=== PATIENT | female | born 1950 | race Hispanic/Latino ===

== ENCOUNTER 2017-04-24 13:15 | Emergency (ER) | payer MEDICARE | END 2017-04-24 14:41 | disposition home or self-care (01) | LOC: EDH 13:15 | DX: S40.021A Contusion of right upper arm, initial encounter (principal); K21.9 Gastro-esophageal reflux disease without esophagitis; E78.5 Hyperlipidemia, unspecified; Z88.8 Allergy status to other drugs, medicaments and biological substances; W01.0XXA Fall on same level from slipping, tripping and stumbling without subsequent striking against object, initial encounter; Y93.89 Activity, other specified; Y92.098 Other place in other non-institutional residence as the place of occurrence of the external cause; Y99.8 Other external cause status | CPT/HCPCS: 73060 ==

== ENCOUNTER → 2017-07-02 | Outpatient (CLI) | payer MEDICARE | END | disposition home or self-care (01) | LOC: OIH 13:32 | PROVIDERS: ATTEND Internal Medicine | DX: S42.91XA Fracture of right shoulder girdle, part unspecified, initial encounter for closed fracture (principal); R29.898 Other symptoms and signs involving the musculoskeletal system; X58.XXXA Exposure to other specified factors, initial encounter; Y93.89 Activity, other specified; Y92.89 Other specified places as the place of occurrence of the external cause; Y99.8 Other external cause status | CPT/HCPCS: 73200 ==

== ENCOUNTER 2018-05-16 18:24 | Emergency (ER) | payer MEDICARE ==
[2018-05-16 19:14] LABS: APPEARANCE,URINE Clear (CLEAR); BILIRUBIN,URINE Negative (NEGATIVE); COLOR,URINE Yellow (YELLOW); GLUCOSE, URINE (UA) Negative (NEGATIVE); KETONES,URINE Negative (NEGATIVE); LEUKOCYTE ESTERASE ,URINE Moderate (NEGATIVE); NITRATE,URINE Negative (NEGATIVE); OCCULT BLOOD,URINE Negative (NEGATIVE); PROTEIN,URINE Negative (NEGATIVE); UROBILINOGEN,URINE 0.2 mg/dL (0.2-1.0)
[2018-05-16 19:49] LABS: BACTERIA,URINE Rare /HPF (None Seen); RBC,URINE 0-1 /HPF (0-1)
[2018-05-16 19:51] LABS: SQUAMOUS EPITHELIAL CELL,UR Rare /HPF (0-2)
[2018-05-16] MEDS ORDERED: DiphenhydrAMINE HCL 50 MG/ML VIAL ONE (19:57)
[2018-05-16] MEDS ORDERED: SODIUM CHLORIDE 0.9% 1000ML 1,000 ML IV ONE (19:57)
[2018-05-16] MEDS ORDERED: KETOROLAC TROMETHAMINE 30MG/ML ONE (19:58)
[2018-05-16] MEDS ORDERED: PROCHLORPERAZINE EDISYLATE 10 MG/2 ML VIAL ONE (19:58)
[2018-05-16 20:08] LABS: BASOPHILS % (AUTO) 0.4 % (0.0-5.0); LYMPHOCYTES % (AUTO) 32.9 % (21.0-51.0); MEAN CORPUSCULAR HEMOGLOBIN 30.6 pg (27.0-33.0); MEAN CORPUSCULAR HGB CONC 33.7 g/dL (32.0-36.0); MEAN CORPUSCULAR VOLUME 90.9 fL (79-99); MONOCYTES % (AUTO) 9.4 % (3.0-13.0); NEUTROPHILS % (AUTO) 55.3 % (40.0-77.0); PLATELET COUNT (AUTO) 373 K/uL (130-400); RED BLOOD CELL COUNT(AUTO) 3.52 MIL/uL (4.00-5.50); RED CELL DISTRIBUTION WIDTH 13.4 % (11.0-15.5); WHITE BLOOD COUNT (AUTO) 6.4 K/uL (4.8-10.8)
[2018-05-16 20:20] LABS: CREATININE 0.5 mg/dL (0.5-1.5); POTASSIUM 3.6 mmol/L (3.5-5.1)
[2018-05-16 20:21] LABS: INR 0.9 (0.85-1.15); PARTIAL THROMBOPLASTIN TIME 26.7 SEC (26.3-35.5); PROTHROMBIN TIME 9.5 SEC (9.6-11.6)
[2018-05-16 20:25] LABS: ALBUMIN 3.8 g/dL (3.5-5.0); BILIRUBIN,TOTAL 0.2 mg/dL (0.2-1.0); TOTAL PROTEIN, SERUM 7.8 g/dL (6.0-8.3)
[2018-05-16] MEDS ORDERED: LORAZEPAM 1 MG TABLET ONE (20:50)
== END 2018-05-16 21:01 | disposition home or self-care (01) ==
LOC: EDH 18:24
DX: H81.10 Benign paroxysmal vertigo, unspecified ear (principal); E86.9 Volume depletion, unspecified; R51 Headache; M62.838 Other muscle spasm
CPT/HCPCS: 36415; 80053; 81001; 84484; 85025; 85610; 85730; 96361; 96374; 96375; 99283; J0780; J1200; J1885; J7030

== ENCOUNTER → 2018-12-01 | Outpatient (CLI) | payer OTHER | END | disposition home or self-care (01) | LOC: RAH 10:32 | PROVIDERS: ATTEND Internal Medicine | DX: Z13.6 Encounter for screening for cardiovascular disorders (principal) | CPT/HCPCS: 75571 ==

== ENCOUNTER 2019-11-22 05:53 | Day surgery (SDC) | payer OTHER ==
[2019-11-17 13:26] LABS: BASOPHILS % (AUTO) 0.4 % (0.0-5.0); EOSINOPHILS % (AUTO) 2.6 % (0.0-8.0); HEMATOCRIT 31.3 % (36-48); LYMPHOCYTES % (AUTO) 40.6 % (21.0-51.0); MEAN CORPUSCULAR HEMOGLOBIN 30.3 pg (27.0-33.0); MEAN CORPUSCULAR HGB CONC 32.9 g/dL (32.0-36.0); MEAN CORPUSCULAR VOLUME 92.1 fL (79-99); MONOCYTES % (AUTO) 7.7 % (3.0-13.0); NEUTROPHILS % (AUTO) 48.5 % (40.0-77.0); PLATELET COUNT (AUTO) 256 K/uL (130-400); RED CELL DISTRIBUTION WIDTH 13.9 % (11.0-15.5); WHITE BLOOD COUNT (AUTO) 4.7 K/uL (4.8-10.8)
[2019-11-17 13:32] LABS: CREATININE 0.6 mg/dL (0.5-1.5); POTASSIUM 3.7 mmol/L (3.5-5.1)
--- NOTE | 2019-11-21 11:30 | NUR ---
Spoke to Alexa from Doctor Saavedra office advised her hemoglobin level was 10.3, per nurse she would advise doctor Saavedra and call us back if any orders.
[2019-11-22] VITALS (17 sets, daily range): BP systolic 83–142; BP diastolic 43–91
[~2019-11-22] VITALS: Ht 162.6 cm; Wt 86.5 kg
[~2019-11-22 05:53] MED LIST: AMOX500C2 PO; CODEINE PO; DICL50TA9 PO; FENO54TA6 PO; GABA-529 PO; LOSA25TA41 PO; PYRI100T10 PO; SERT100T PO; TYLENOL PO; iron PO; magnesium PO; tumeric PO; vitamin d PO
[2019-11-22] MEDS ORDERED: NEOMY SULF/BACITRAC ZN/POLY OINT 30GM TUBE TP ONE (06:47)
[2019-11-22] MEDS ORDERED: EPINEPHRINE 1 MG/ML AMPULE ONE (06:48)
[2019-11-22] MEDS ORDERED: LIDOCAINE HCL 1% MDV 50ML VIAL ONE (06:48)
[2019-11-22] MEDS ORDERED: LACTATED RINGERS 1000ML 1,000 ML IV ONE (06:50)
[2019-11-22] MEDS ORDERED: SUCCINYLCHOLINE CHLORIDE 20 MG/ML 10 ML VIAL ONE ×2 (07:17→08:21)
[2019-11-22] MEDS ORDERED: LIDOCAINE PF 2% 5ML ABBOJECT ONE (07:18)
[2019-11-22] MEDS ORDERED: MIDAZOLAM HCL 1 MG/ML 2ML VIAL ONE (07:18)
[2019-11-22] MEDS ORDERED: GLYCOPYRROLATE 1 MG/5 ML SYRINGE ONE (07:18)
[2019-11-22] MEDS ORDERED: DEXAMETHASONE SOD PHOSPHATE 10MG/ML 1ML VIAL ONE (07:18)
[2019-11-22] MEDS ORDERED: ONDANSETRON HCL 4 MG/2 ML VIAL ONE (07:19)
[2019-11-22] MEDS ORDERED: PROPOFOL 10 MG/ML 20ML VIAL IV ONE (07:19)
[2019-11-22] MEDS ORDERED: NEOSTIGMINE 5MG/5ML SYR IV ONE (07:19)
[2019-11-22] MEDS ORDERED: FENTANYL CITRATE PF 50 MCG/1 ML 2ML VIAL ONE (07:19)
[2019-11-22] MEDS ORDERED: ROCURONIUM 10MG/1ML SYR 10 MG/ML ML ONE (07:19)
[2019-11-22] MEDS ORDERED: CEFAZOLIN SODIUM 1 GM VIAL ONE (07:53)
[2019-11-22] MEDS ORDERED: MEPERIDINE-PF 25 MG/ML SYG ONE (09:21)
[2019-11-22] MEDS ORDERED: KETOROLAC TROMETHAMINE 30MG/ML ONE (09:37)
== END 2019-11-22 10:35 | disposition home or self-care (01) ==
LOC: DAH 05:53
PROVIDERS: ATTEND Otolaryngology Plastic Surgery within the Head & Neck
DX: H70.11 Chronic mastoiditis, right ear (principal); H66.3X1 Other chronic suppurative otitis media, right ear; H72.91 Unspecified perforation of tympanic membrane, right ear; H70.891 Other mastoiditis and related conditions, right ear; H74.01 Tympanosclerosis, right ear; J45.909 Unspecified asthma, uncomplicated; Z11.59 Encounter for screening for other viral diseases; Z88.8 Allergy status to other drugs, medicaments and biological substances; Z98.890 Other specified postprocedural states
CPT/HCPCS: 36415; 69645; 80048; 85025; 88305; 88311; 88312; A4215; A4221; A4222; A4223; A4452; A4649; A6260; A6446; C9803; J0171; J0330 ×2; J0690; J1100; J1885; J2001; J2175; J2250; J2405; J2704; J2710; J3010; J3490 ×2; J7030; J7040; J7120; U0003

== ENCOUNTER 2023-09-25 18:31 | Emergency (ER) | payer OTHER ==
[~2023-09-25] VITALS: Ht 162.6 cm; Wt 73.9 kg
[2023-09-25 19:39] LABS: BASOPHILS # (AUTO) 0.03 K/uL (0.00-0.20); BASOPHILS % (AUTO) 0.5 % (0.0-5.0); EOSINOPHILS # (AUTO) 0.12 K/uL (0.00-0.70); EOSINOPHILS % (AUTO) 1.9 % (0.0-8.0); HEMATOCRIT 30.2 % (36-48); IMMATURE GRANULOCYTE ABSOLUTE 0.01 K/uL (0-1); LYMPHOCYTES # (AUTO) 1.9 K/uL (1.0-4.8); LYMPHOCYTES % (AUTO) 28.6 % (21.0-51.0); MEAN CORPUSCULAR HEMOGLOBIN 32.4 pg (27.0-33.0); MEAN CORPUSCULAR HGB CONC 36.1 g/dL (32.0-36.0); MEAN CORPUSCULAR VOLUME 89.9 fL (79-99); MONOCYTES # (AUTO) 0.6 K/uL (0.1-1.0); MONOCYTES % (AUTO) 9.1 % (3.0-13.0); NEUTROPHILS # (AUTO) 3.9 K/uL (1.8-7.7); NEUTROPHILS % (AUTO) 59.7 % (40.0-77.0); PLATELET COUNT (AUTO) 286 K/uL (130-400); RED BLOOD CELL COUNT(AUTO) 3.36 MIL/uL (4.00-5.50); RED CELL DISTRIBUTION WIDTH 12.7 % (11.0-15.5); WHITE BLOOD COUNT (AUTO) 6.5 K/uL (4.8-10.8)
[2023-09-25 20:03] LABS: CREATININE 0.6 mg/dL (0.5-1.0); POTASSIUM 3.7 mmol/L (3.5-5.1)
[2023-09-25 20:05] LABS: ADD UA MICROSCOPIC YES; APPEARANCE,URINE CLEAR (CLEAR); BILIRUBIN,URINE NEGATIVE (NEGATIVE); COLOR,URINE COLORLESS (YELLOW); GLUCOSE, URINE (UA) NEGATIVE (NEGATIVE); KETONES,URINE NEGATIVE (NEGATIVE); LEUKOCYTE ESTERASE ,URINE NEGATIVE Leu/uL (NEGATIVE); NITRATE,URINE NEGATIVE (NEGATIVE); PH,URINE 7.5 (5.0-8.0); PROTEIN,URINE NEGATIVE (NEGATIVE); UROBILINOGEN,URINE 0.2 mg/dL (0.2-1.0)
[2023-09-25 20:09] LABS: RBC,URINE 0-1 /HPF (0-1); SQUAMOUS EPITHELIAL CELL,UR RARE /HPF (0-2); WBC,URINE 0-1 /HPF (0-1)
[2023-09-25] MEDS ORDERED: DOCU-116 PO (22:15)
[2023-09-25] MEDS: KETOROLAC 30MG VIAL (30MG/ML) IM ONE (23:20)
[2023-09-25] MEDS: HYDROCODONE/ACETAMINOPHEN 10/325 MG TAB PO ONE (23:37)
[2023-09-26 00:10] VITALS: BP 125/68; PULSE 79; RESP 20; O2SAT 98
== END 2023-09-26 00:11 | disposition home or self-care (01) ==
LOC: EDH 18:31
DX: K59.00 Constipation, unspecified (principal); R10.31 Right lower quadrant pain; I10 Essential (primary) hypertension; E78.00 Pure hypercholesterolemia, unspecified; J45.909 Unspecified asthma, uncomplicated; Z88.8 Allergy status to other drugs, medicaments and biological substances; Z87.440 Personal history of urinary (tract) infections; Z79.899 Other long term (current) drug therapy
CPT/HCPCS: 99285; 74176; 80048; 85025; 81001; 36415; 96372; J1885

== ENCOUNTER 2024-02-27 23:29 | Observation (INO) | payer OTHER ==
[~2024-02-27] VITALS: Ht 162.6 cm; Wt 72.1 kg
[~2024-02-27 23:29] MED LIST changes: +DOCU-116 PO
--- NOTE | 2024-02-27 23:32 | NUR ---
UA CUP PROVIDED
[2024-02-27 23:57] LABS: APPEARANCE,URINE CLEAR (CLEAR); BILIRUBIN,URINE NEGATIVE (NEGATIVE); COLOR,URINE COLORLESS (YELLOW); GLUCOSE, URINE (UA) NEGATIVE (NEGATIVE); KETONES,URINE NEGATIVE (NEGATIVE); LEUKOCYTE ESTERASE ,URINE 25 Leu/uL (NEGATIVE); NITRATE,URINE NEGATIVE (NEGATIVE); OCCULT BLOOD,URINE SMALL (NEGATIVE); PROTEIN,URINE NEGATIVE (NEGATIVE); UROBILINOGEN,URINE 0.2 mg/dL (0.2-1.0)
[2024-02-27 23:59] LABS: ADD UA MICROSCOPIC YES
[2024-02-28 00:01] LABS: RBC,URINE 0-1 /HPF (0-1); SQUAMOUS EPITHELIAL CELL,UR RARE /HPF (0-2); WBC,URINE 0-1 /HPF (0-1)
[2024-02-28 00:11] LABS: BASOPHILS # (AUTO) 0.02 K/uL (0.00-0.20); BASOPHILS % (AUTO) 0.4 % (0.0-5.0); EOSINOPHILS # (AUTO) 0.04 K/uL (0.00-0.70); EOSINOPHILS % (AUTO) 0.9 % (0.0-8.0); HEMATOCRIT 30.6 % (36-48); IMMATURE GRANULOCYTE ABSOLUTE 0.02 K/uL (0-1); LYMPHOCYTES # (AUTO) 1.7 K/uL (1.0-4.8); MEAN CORPUSCULAR HEMOGLOBIN 31.4 pg (27.0-33.0); MEAN CORPUSCULAR HGB CONC 34.6 g/dL (32.0-36.0); MEAN CORPUSCULAR VOLUME 90.5 fL (79-99); MONOCYTES # (AUTO) 0.5 K/uL (0.1-1.0); MONOCYTES % (AUTO) 11.3 % (3.0-13.0); NEUTROPHILS # (AUTO) 2.3 K/uL (1.8-7.7); PLATELET COUNT (AUTO) 284 K/uL (130-400); RED BLOOD CELL COUNT(AUTO) 3.38 MIL/uL (4.00-5.50); WHITE BLOOD COUNT (AUTO) 4.5 K/uL (4.8-10.8)
[2024-02-28] MEDS: ketOROlac 15MG/ML VIAL (15MG/ML) IV ONE (00:16)
[2024-02-28] MEDS: 0.9%NACL 1000ML 1,000 ML IV ONE (00:16)
[2024-02-28 00:20] LABS: CREATININE 0.5 mg/dL (0.5-1.0); POTASSIUM 3.5 mmol/L (3.5-5.1)
--- NOTE | 2024-02-28 00:27 | ERN ---
ED Note History of Present Illness Stated Complaint: CHILLS, PAIN WITH URINATION Chief Complaint: UTI without Fever Time Seen by MD: 23:33 Time Seen by Midlevel: 23:33 Dictation: The patient is a 73-year-old female with a history of hypertension, scoliosis, osteoporosis who presents to the emergency department with complaints of burning urination, urinary frequency, chills, right lower back pain onset yesterday. Patient is unsure if she is having any fevers. Denies any nausea vomiting or diarrhea. Allergies: Coded Allergies: ciprofloxacin (Unverified Allergy, Mild, rash between legs, 11/21/19) Home Meds Active Scripts Docusate Sodium (Colace) 100 Mg Capsule, 100 MG PO TID for constipation for 10 Days, #30 CAP 0 Refills Prov:LEI WAYNE 09/25/23 Reported Medications [iron] No Conflict Check, 1 TAB PO NOON 11/21/19 [magnesium] No Conflict Check, 1 TAB PO NOON 11/21/19 [vitamin d] No Conflict Check, 125 MCG PO NOON 11/21/19 Pyridoxine HCl (Vitamin B-6) 100 Mg Tablet, 100 MG PO NOON, TAB 11/21/19 [tumeric] No Conflict Check, 500 MG PO NOON 11/21/19 Fenofibrate (Fenofibrate) 54 Mg Tablet, 54 MG PO HS, TAB 11/21/19 Amoxicillin (Amoxicillin) 500 Mg Capsule, 500 MG PO DAILY, CAP 11/21/19 Losartan Potassium (Losartan Potassium) 25 Mg Tablet, 25 MG PO HS, TAB 11/21/19 Gabapentin (Gabapentin) 100 Mg Capsule, 300 MG PO TID, CAP 11/21/19 [tylenol w/codeine #3] No Conflict Check, 1 TAB PO BID PRN for PAIN LEVEL 4 TO 6 11/21/19 Sertraline HCl (Zoloft) 100 Mg Tablet, 200 MG PO DAILY, TAB 11/21/19 Diclofenac Sodium (Diclofenac Sodium) 50 Mg Tablet.dr, 50 MG PO BID, TAB 11/21/19 Past Medical History Past Medical History: Asthma, High Cholesterol, Hypertension, UTI Surgical History: Other Surgical History Other: BACK SURGERY RN Note Reviewed/Agreed w/PFSH: Yes Review of System Dictation Constitutional: Negative for fever,and weight loss positive for chills Eyes: Negative for injury, pain,redness, and discharge ENT: Negative for injury,pain or swelling Cardiovascular: Negative for chest pain, palpitations, and edema Respiratory: Negative for shortness of breath, cough, and wheezing, Abdomen/GI: Negative for abdominal pain, nausea, vomiting, diarrhea, and constipation Back: Positive for low back pain : Negative for injury, bleeding and discharge positive for burning urination MS/Extremity: Negative for injury and deformity Skin: Negative for rash, and discoloration Neuro: Negative for headache, weakness, numbness, tingling, and seizure Psych: Negative for suicide ideation, homicidal ideation, and hallucinations Initial Vital Sign VS Vital Signs Date Time Temp Pulse Resp B/P (MAP) Pulse Ox O2 Delivery O2 Flow Rate FiO2 02/27/24 23:30 97.2 70 16 149/88 99 Room Air 02/27/24 23:59 0 21 Physical Exam Dictation Vital Signs reviewed General Appearance: Alert, oriented x 3, no acute distress, well developed, nourished. Head and Face: non-traumatic. Eyes: PERRL, pink conjunctivas, eyelid no trauma, anterior chamber with arcus senilis. Ears: Pinnas intact and no signs of trauma or erythema ear canals clear and no discharge TM no erythema Nose: No discharge, no bleeding. Oropharynx: Mouth normal, tongue pink. pharynx clear,no erythema, tonsils no exudates, no abscesses noted, mucous membrane moist Neck: Supple, non-tender, no thyromegaly, no masses, no JVD, no bruits Breast:Deferred Chest:No tenderness, no crepitus, no paradoxical movement, no retractions Lungs:Clear, well-ventilated, symmetric, no rales, no wheezing, no rhonchi, no stridor, good breath sounds bilaterally Heart: Regular rate, regular rhythm, no murmur, no gallops Vascular: no peripheral edema, Abdomen: Soft, positive bowel sounds, nondistended, no guarding, nontender, no rebound, no masses no hepatomegaly, no splenomegaly, no Koch's sign, no hernias. Rectal: Deferred Genital: Deferred Neurological: Normal speech, motor function intact, sensory function intact Musculoskeletal: Neck nontender, full range of motion, back nontender, full range of motion, Extremities: nontender, full range of motion Skin: Color pink, dry, no turgor, no rash, no lacerations, no abrasions, no contusions. Lymphatic: Deferred Results (Laboratory/Radiology) Laboratory/Radiology Laboratory Tests Test 02/27/24 23:45 02/27/24 23:55 Urine Color COLORLESS (YELLOW) Urine Appearance CLEAR (CLEAR) Urine pH 7.0 (5.0-8.0) Urine Specific [place] 1.002 (1.001-1.031) Urine Protein NEGATIVE mg/dL (NEGATIVE) Urine Glucose (UA) NEGATIVE mg/dL (NEGATIVE) Urine Ketones NEGATIVE mg/dL (NEGATIVE) Urine Occult Blood SMALL (NEGATIVE) H Urine Nitrate NEGATIVE (NEGATIVE) Urine Bilirubin NEGATIVE mg/dL (NEGATIVE) Urine Urobilinogen 0.2 mg/dL (0.2-1.0) Urine Leukocyte Esterase 25 Micah/uL (NEGATIVE) H Urine RBC 0-1 /HPF (0-1) Urine WBC 0-1 /HPF (0-1) Urine Squamous Epithelial Cells RARE /HPF (0-2) Urine Bacteria None /HPF (None Seen) White Blood Count 4.5 K/uL (4.8-10.8) L Red Blood Count 3.38 MIL/uL (4.00-5.50) L Hemoglobin 10.6 g/dL (12.0-16.0) L Hematocrit 30.6 % (36-48) L Mean Corpuscular Volume 90.5 fL (79-99) Mean Corpuscular Hemoglobin 31.4 pg (27.0-33.0) Mean Corpuscular Hemoglobin Concent 34.6 g/dL (32.0-36.0) Red Cell Distribution Width 12.0 % (11.0-15.5) Platelet Count 284 K/uL (130-400) Mean Platelet Volume 7.8 fL (7.5-10.5) Immature Granulocyte % (Auto) 0.4 % (0-1) Neutrophils (%) (Auto) 50.0 % (40.0-77.0) Lymphocytes (%) (Auto) 37.0 % (21.0-51.0) Monocytes (%) (Auto) 11.3 % (3.0-13.0) Eosinophils (%) (Auto) 0.9 % (0.0-8.0) Basophils (%) (Auto) 0.4 % (0.0-5.0) Neutrophils # (Auto) 2.3 K/uL (1.8-7.7) Lymphocytes # (Auto) 1.7 K/uL (1.0-4.8) Monocytes # (Auto) 0.5 K/uL (0.1-1.0) Eosinophils # (Auto) 0.04 K/uL (0.00-0.70) Basophils # (Auto) 0.02 K/uL (0.00-0.20) Absolute Immature Granulocyte (auto 0.02 K/uL (0-1) Nucleated Red Blood Cells 0.0 % (0.0-0.19) Sodium Level 129 mmol/L (136-145) L Potassium Level 3.5 mmol/L (3.5-5.1) Chloride Level 93 mmol/L (101-111) L Carbon Dioxide Level 29 mmol/L (21-32) Blood Urea Nitrogen 5 mg/dL (7-18) L Creatinine 0.5 mg/dL (0.5-1.0) Glomerular Filtration Rate Calc 100 mL/min (>90) Random Glucose 103 mg/dL (70-105) Total Calcium 9.0 mg/dL (8.5-10.1) REASON: right flank pain ORDERING PHYSICIAN: KAREN NOLAN PROCEDURE: ABD PEL WO - CT ABDOMEN/PELVIS W/O CONTRAST CT ABDOMEN/PELVIS W/O CONTRAST HISTORY: Right flank pain COMPARISON: 09/25/2023 TECHNIQUE: Multiple sequential axial images of the abdomen and pelvis were obtained from the dome of the diaphragm through symphysis pubis. Patient was not given contrast through intravenous route. Oral contrast was not given. FINDINGS: No pleural effusion is seen bilaterally. There is no evidence of parenchymal disease or pulmonary nodule of the visualized lower lungs. Degenerative changes of the thoracolumbar spine are present. The heart is not enlarged. There is levoscoliosis. There is 1.8 cm left renal cyst. Liver measures 11.3 cm. Gallbladder is distended. Postop changes are seen of the lower lumbar spine. The liver, spleen, adrenal glands and pancreas are unremarkable. There is no evidence of hydronephrosis bilaterally. 2 mm left renal pelvic stone is seen. Fecal material is seen in the colon. There are normal size retroperitoneal and mesenteric lymph nodes. No ascites is seen. Atherosclerotic changes are present. Pelvic sidewalls are symmetric bilaterally. Bladder is markedly distended. There is mild diverticulosis. IMPRESSION: 1. No hydronephrosis. 2 mm left renal pelvic stone. Diverticulosis. Markedly distended bladder. Scoliosis. CT was performed with one or more following dose reduction techniques: automated exposure control, adjustment of the mA and kv according to patient's size, or use of a iterative reconstruction technique. Labs Reviewed?: Yes ED Course ED Course Orders Procedure Category Date Status Time Cbc With Differential LAB 02/27/24 Complete 23:35 Basic Metabolic Panel LAB 02/27/24 Complete 23:35 Urinalysis Profile LAB 02/27/24 Complete 23:35 Ct Abdomen/Pelvis W/O CT 02/28/24 Resulted Contrast 00:09 Ketorolac PHA 02/28/24 Complete Tromethamine 15mg/Ml 00:30 0.9%Nacl 1000ml (Ns PHA 02/28/24 In Process 1000ml) 00:30 Ceftriaxone 2gm Vial PHA 02/28/24 Complete (Rocephin 2gm Inj) 01:00 Current Medications Medications (Trade) Dose Ordered Sig/Shanell Route PRN Reason Start Time Stop Time Status Last Admin Dose Admin Ceftriaxone Sodium (Rocephin 2gm Inj) 2 gm ONCE ONCE IVPB 02/28/24 01:00 02/28/24 01:01 DC 02/28/24 00:48 Ketorolac Tromethamine (toRADol) 15 mg ONCE ONCE IV 02/28/24 00:30 02/28/24 00:31 DC 02/28/24 00:16 Sodium Chloride 1,000 ml @ 125 mls/hr ONCE ONCE IV 02/28/24 00:30 02/28/24 08:29 02/28/24 00:16 Vital Signs Date Time Temp Pulse Resp B/P (MAP) Pulse Ox O2 Delivery O2 Flow Rate FiO2 02/27/24 23:59 98.4 67 18 154/88 98 Room Air* 0 21 02/27/24 23:30 97.2 70 16 149/88 99 Room Air Medical Decision Making MDM The patient is a 73-year-old female with a history of hypertension, scoliosis, osteoporosis who presents to the emergency department with complaints of burning urination, urinary frequency, chills, right lower back pain onset yesterday. Patient is unsure if she is having any fevers. Denies any nausea vomiting or di arrhea. CBC showed no leukocytosis, normocytic anemia, chemistry showed mild hyponatremia, hypochloremia, normal renal function. Patient given IV fluids during ER stay. Urinalysis with mild leukocyte esterase. Given patient's symptomatic treatment UTI. CT showed no hydronephrosis, 2 mm left renal pelvic stone, diverticulosis, distended bladder. Patient bladder scanned and had about 800cc of urine despite voiding multiple times. Viera placed with >1000 cc of urine. Patient will be admitted for further management. Differential diagnosis: UTI, pyelonephritis, kidney stone, electrolyte imbalance. Comorbidities: Scoliosis, osteoporosis, hypertension. Tests considered and not ordered secondary to shared decision making include: none Previous outside records reviewed: none Risk of complication and/or morbidity or mortality of patient management: The patient meets criteria for admission. Need for emergency major/minor surgery: No There are no social concerns with this patient. I independently interpreted the tests I ordered (labs, urinalysis, etc.). I discussed the case with the hospitalist for admission. Dr Olivera who accepts admission I discussed the case with the following specialists: none. Historian: pateint. I independently interpreted imaging studies and EKGs that I ordered (US, CT, XR, EKG, etc.). External chart review: none. Medical management and examination interpretation discussions were had by me with other qualified healthcare professionals as indicated for the patient's care. DX & DISP Disposition: Inpatient Decision to Admit Date: Feb 28, 2024 Decision to Admit Time: 02:18 Departure Impression: Primary Impression: UTI (urinary tract infection) Additional Impressions: Left renal stone, Hyponatremia, Hypochloremia, Urinary retention, Anemia Condition: Stable Referrals: KALIN OLIVERA MD (PCP) I have reviewed the case, and I agree with, Diagnosis and Plan KAREN NOLAN Feb 28, 2024 00:27
[2024-02-28] MEDS: CEFTRIAXONE 2GM VIAL IVPB ONE (00:48)
--- NOTE | 2024-02-28 01:24 | HMCIMG ---
CT ABDOMEN/PELVIS W/O CONTRAST HISTORY: Right flank pain COMPARISON: 09/25/2023 TECHNIQUE: Multiple sequential axial images of the abdomen and pelvis were obtained from the dome of the diaphragm through symphysis pubis. Patient was not given contrast through intravenous route. Oral contrast was not given. FINDINGS: No pleural effusion is seen bilaterally. There is no evidence of parenchymal disease or pulmonary nodule of the visualized lower lungs. Degenerative changes of the thoracolumbar spine are present. The heart is not enlarged. There is levoscoliosis. There is 1.8 cm left renal cyst. Liver measures 11.3 cm. Gallbladder is distended. Postop changes are seen of the lower lumbar spine. The liver, spleen, adrenal glands and pancreas are unremarkable. There is no evidence of hydronephrosis bilaterally. 2 mm left renal pelvic stone is seen. Fecal material is seen in the colon. There are normal size retroperitoneal and mesenteric lymph nodes. No ascites is seen. Atherosclerotic changes are present. Pelvic sidewalls are symmetric bilaterally. Bladder is markedly distended. There is mild diverticulosis. IMPRESSION: 1. No hydronephrosis. 2 mm left renal pelvic stone. Diverticulosis. Markedly distended bladder. Scoliosis. CT was performed with one or more following dose reduction techniques: automated exposure control, adjustment of the mA and kv according to patient's size, or use of a iterative reconstruction technique.
[2024-02-28 03:07] VITALS: O2SAT 99
[2024-02-28] MEDS ORDERED: acetaMINOPHEN 325 MG TAB PO PRN (03:30)
[2024-02-28] MEDS ORDERED: ondanSETRON 4MG INJ IVP PRN (03:30)
[2024-02-28] MEDS: tamSULOsin HCL 0.4 MG CAP.ER.24H PO ONE (03:36)
[2024-02-28] MEDS: 0.9%NACL 1000ML 1,000 ML IV SCH (03:36)
--- NOTE | 2024-02-28 03:40 | NUR ---
PATIENT REPORT GIVEN TO ELYSE CODY
[2024-02-28 04:00] VITALS: BP 155/86; PULSE 77; RESP 19; TEMP 97.9
[2024-02-28 08:00] VITALS: BP 132/78; PULSE 77; RESP 18; TEMP 98.2
[2024-02-28] MEDS: morPHINE 2 MG SYG IVP PRN (08:43)
[2024-02-28] MEDS: acetaMINOPHEN 325 MG TAB PO PRN (09:41)
[2024-02-28 12:00] VITALS: BP 114/92; PULSE 82; RESP 18; TEMP 98.5
[2024-02-28] MEDS ORDERED: MEMA5TAB16 PO (13:57)
[2024-02-28] MEDS ORDERED: LOSA25TA41 PO (13:57)
[2024-02-28] MEDS ORDERED: ADV250 IH (13:57)
[2024-02-28] MEDS ORDERED: ESCI5TAB16 PO (13:57)
[2024-02-28] MEDS ORDERED: ALBU0.63 IH (13:57)
[2024-02-28] MEDS ORDERED: GABA300C PO (13:57)
[2024-02-28] MEDS ORDERED: ALBUTEROL 0.042% 1.25MG/3ML IH PRN (14:00)
[2024-02-28] MEDS ORDERED: LACTULOSE 20 GM/30 ML UDCUP PO PRN (14:00)
[2024-02-28] MEDS ORDERED: PoTASSium chl 10% ELIXIR 20MEQ 20 MEQ/15 ML UDCUP PO PRN (14:00)
[2024-02-28] MEDS ORDERED: PoTASSium chloRIDE 20MEQ/100ML 100 ML IV PRN (14:00)
[2024-02-28] MEDS ORDERED: MAG/ALUM/SIMETH 30 ML UDCUP PO PRN (14:00)
[2024-02-28] MEDS ORDERED: PoTASSium chloRIDE 20MEQ ER 20 MEQ ERTAB PO PRN (14:00)
--- NOTE | 2024-02-28 14:00 | HP ---
HISTORY AND PHYSICAL Date of Visit: Feb 28, 2024 Time of Visit: 13:59 ADMISSION DATE: Feb 28, 2024 at 03:14 CC: PAIN ON URINATION HPI: This is a 73-year-old woman with a history of hypertension, scoliosis, osteoporosis who presents to the emergency department with complaints of burning urination, urinary frequency, chills, right lower back pain onset yeste rday. Patient is unsure if she is having any fevers. Denies any nausea vomiting or diarrhea. While in the ER she was noted to have urinary retention with a reported 800 cc residual and necessitated a sims placement. The patient denied any abdominal pain flank pain or constipation. She suffers from chronic LBP with lumbar stenosis and is on chronic tylenol #3 for pain control. 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 SCOLIOSIS OSTEOPOROSIS SHEILA RECURRENT UTI'S SOCIAL HISTORY: but and lives locally no current alcohol tobacco or drug abuse FAMILY HISTORY: HTN ADN DM II Patient History: Hypertension FATHER BROTHER, Onset:54 Immunocompromised state BROTHER, Onset:30's - 40 Allergies: Coded Allergies: ciprofloxacin (Unverified Allergy, Mild, rash between legs, 11/21/19) Scheduled Cephalexin (Cephalexin), 1 CAP PO TID Escitalopram Oxalate (Escitalopram Oxalate), 1 TAB PO DAILY Fluticasone/Salmeterol (Advair 250-50 Diskus), 1 PUFF IH BID Gabapentin (Neurontin), 1 CAP PO TID Lactulose (Lactulose), 30 ML PO TID Losartan Potassium (Losartan Potassium), 0.5 TAB PO BID Memantine HCl (Memantine HCl), 1 TAB PO BID Pyridoxine HCl (Vitamin B-6), 100 MG PO NOON, (Reported) Scheduled PRN Albuterol Sulfate (Albuterol Sulfate), 0.63 MG IH QID PRN for SHORTNESS OF BREATH [tylenol w/codeine #3], 1 TAB PO BID PRN for PAIN LEVEL 4 TO 6, (Reported) Discontinued Medications Amoxicillin (Amoxicillin), 500 MG PO DAILY, (Reported) Diclofenac Sodium (Diclofenac Sodium), 50 MG PO BID, (Reported) Docusate Sodium (Colace), 100 MG PO TID Fenofibrate (Fenofibrate), 54 MG PO HS, (Reported) Gabapentin (Gabapentin), 300 MG PO TID, (Reported) Losartan Potassium (Losartan Potassium), 25 MG PO HS, (Reported) Sertraline HCl (Zoloft), 200 MG PO DAILY, (Reported) [iron], 1 TAB PO NOON, (Reported) [magnesium], 1 TAB PO NOON, (Reported) [tumeric], 500 MG PO NOON, (Reported) [vitamin d], 125 MCG PO NOON, (Reported) Review of Systems Normal Constitutional:, Normal Eyes:, Normal Ear/Nose/Mouth/Throat, Normal Cardiovascular:, Normal Respiratory:, Normal Gastrointestinal:, Normal Genitourinary:, Normal Integumentary:, Normal Musculoskeletal:, Normal Neurological:, Normal Psychological:, Normal Endocrine:, Normal Hematologic/Lymphatic:, Normal Allergic/Immunologic: Physical Exam Vital Signs Vital Signs Date Time Temp Pulse Resp B/P (MAP) Pulse Ox O2 Delivery O2 Flow Rate FiO2 02/27/24 23:30 97.2 70 16 149/88 99 Room Air 02/27/24 23:59 0 21 Appearance: Obese Eyes: Clear, PERRL, EOM Normal Ear/Nose/Mouth/Throat: Landmarks WNL, Hearing WNL Neck: Symmetric, trach midline Cardiovascular: PMI WNL, Regular Rate, Regular Rhythm Respiratory: No Retractions, No rubs/wheezing, Lungs clear G.I.: Normal bowel sounds, No pain w/ palpations Lymphatic: No lymphadenopathy neck, No lymphadenopathy axilla, No lymphadenopathy groin Musculoskeletal: Normal ROM, Strength/Tone WNL Breasts: Symmetrical, no masses Skin: No rash/ulcers Neurology: Nerves I-XII intact, Sensation WNL Psychology: Insight WNL, Orientation WNL, Memory WNL, Affect WNL Diagnostics Laboratory Tests Test 02/27/24 23:45 02/27/24 23:55 02/28/24 11:48 Range/Units Urine Color COLORLESS YELLOW Urine Appearance CLEAR CLEAR Urine pH 7.0 5.0-8.0 Urine Specific [place] 1.002 1.001-1.031 Urine Protein NEGATIVE NEGATIVE mg/dL Urine Glucose (UA) NEGATIVE NEGATIVE mg/dL Urine Ketones NEGATIVE NEGATIVE mg/dL Urine Occult Blood SMALL NEGATIVE Urine Nitrate NEGATIVE NEGATIVE Urine Bilirubin NEGATIVE NEGATIVE mg/dL Urine Urobilinogen 0.2 0.2-1.0 mg/dL Urine Leukocyte Esterase 25 NEGATIVE Micah/uL Urine RBC 0-1 0-1 /HPF Urine WBC 0-1 0-1 /HPF Urine Squamous Epithelial Cells RARE 0-2 /HPF Urine Bacteria None None Seen /HPF White Blood Count 4.5 4.8-10.8 K/uL Red Blood Count 3.38 4.00-5.50 MIL/uL Hemoglobin 10.6 12.0-16.0 g/dL Hematocrit 30.6 36-48 % Mean Corpuscular Volume 90.5 79-99 fL Mean Corpuscular Hemoglobin 31.4 27.0-33.0 pg Mean Corpuscular Hemoglobin Concent 34.6 32.0-36.0 g/dL Red Cell Distribution Width 12.0 11.0-15.5 % Platelet Count 284 130-400 K/uL Mean Platelet Volume 7.8 7.5-10.5 fL Immature Granulocyte % (Auto) 0.4 0-1 % Neutrophils (%) (Auto) 50.0 40.0-77.0 % Lymphocytes (%) (Auto) 37.0 21.0-51.0 % Monocytes (%) (Auto) 11.3 3.0-13.0 % Eosinophils (%) (Auto) 0.9 0.0-8.0 % Basophils (%) (Auto) 0.4 0.0-5.0 % Neutrophils # (Auto) 2.3 1.8-7.7 K/uL Lymphocytes # (Auto) 1.7 1.0-4.8 K/uL Monocytes # (Auto) 0.5 0.1-1.0 K/uL Eosinophils # (Auto) 0.04 0.00-0.70 K/uL Basophils # (Auto) 0.02 0.00-0.20 K/uL Absolute Immature Granulocyte (auto 0.02 0-1 K/uL Nucleated Red Blood Cells 0.0 0.0-0.19 % Sodium Level 129 136-145 mmol/L Potassium Level 3.5 3.5-5.1 mmol/L Chloride Level 93 101-111 mmol/L Carbon Dioxide Level 29 21-32 mmol/L Blood Urea Nitrogen 5 7-18 mg/dL Creatinine 0.5 0.5-1.0 mg/dL Glomerular Filtration Rate Calc 100 >90 mL/min Random Glucose 103 70-105 mg/dL Total Calcium 9.0 8.5-10.1 mg/dL Whole Blood Glucose 106 70-110 MG/DL Assessment/Plan Assessment/Plan RADIOLOGY: CT ABDOMEN/PELVIS W/O CONTRAST FINDINGS: No pleural effusion is seen bilaterally. There is no evidence of parenchymal disease or pulmonary nodule of the visualized lower lungs. Degenerative changes of the thoracolumbar spine are present. The heart is not enlarged. There is levoscoliosis. There is 1.8 cm left renal cyst. Liver measures 11.3 cm. Gallbladder is distended. Postop changes are seen of the lower lumbar spine. The liver, spleen, adrenal glands and pancreas are unremarkable. There is no evidence of hydronephrosis bilaterally. 2 mm left renal pelvic stone is seen. Fecal material is seen in the colon. There are normal size retroperitoneal and mesenteric lymph nodes. No ascites is seen. Atherosclerotic changes are present. Pelvic sidewalls are symmetric bilaterally. Bladder is markedly distended. There is mild diverticulosis. IMPRESSION: No hydronephrosis. 2 mm left renal pelvic stone. Diverticulosis. Markedly distended bladder. Scoliosis. 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
[2024-02-28] MEDS: GABAPENTIN 300 MG CAPSULE PO SCH (14:50)
[2024-02-28] MEDS: acetaMINOPHEN WITH coDEINE 1 TAB TAB PO PRN (14:51)
--- NOTE | 2024-02-28 14:55 | NUR ---
Nurse CM Assessment Met with patient at bedside. Pt stated she lives alone with her dog and feels safe in her home environment. Pt uses a walker at home for mobility. She has no provider services. Her transport support is her daughter. She stated she has severe depression and is concern at this time of the care of her pet since she is not home. Pharmacy- ([id number]) DCP-Home Addendum: 02/28/24 at 1500 by FRANKLIN HARRELL RN CM Amended: Links added.
[2024-02-28] MEDS ORDERED: LACT-441 PO (15:21)
[2024-02-28] MEDS ORDERED: CEPH500C2 PO (15:21)
[2024-02-28] MEDS ORDERED: TAMS-1 PO (15:33)
[2024-02-28 16:00] VITALS: BP_SYST 121; BP_SYST 129; BP_DIAS 72; BP_DIAS 79; PULSE 72; PULSE 91; RESP 18; TEMP 97.7; TEMP 98.4
[2024-02-28] MEDS: LACTULOSE 20 GM/30 ML UDCUP PO SCH (16:32)
--- NOTE | 2024-02-28 17:55 | NUR ---
DISCHARGE Discharge instructions given to patient and she verbalized understanding of all discharge instructions. She denies questions related to tx or care provided. SL to left forearm removed with cath intact and pressure dressing applied. pt taken to ER [facility] ambulatory with rolling walker by Doris ALDRICH in stable condition.
--- NOTE | 2024-02-28 20:57 | DS ---
DISCHARGE SUMMARY Date of Visit: Feb 28, 2024 Time of Visit: 20:56 ADMISSION DATE: Feb 28, 2024 at 03:14 DISCHARGE DATE: Feb 28, 2024 ATTENDED PHYSICIAN: Treva Olivera MD DISCHARGE DIAGNOSIS: UTI WITH URINARY RETENTION CONSTIPATION ATHEROSCLEROSIS OF AORTA NOTED ON CT 2 MM L RENAL PELVIS STONE W/O OBSTRUCTION MILD COGNITIVE IMPAIRMENT ATROPHIC VAGINITIS LUMBAR STENOSIS BMI 30 COPD MAJOR DEPRESSION SINGLE MODERATE TO SEVERE BALDOMERO FIBROMYALGIA STATIN MYOPATHY DJD GEN MULT SITES SCOLIOSIS OSTEOPOROSIS SHEILA RECURRENT UTI'S TIRE ADJUSTER(S): NONE PROCEDURES: NONE RADIOLOGY: CT ABDOMEN/PELVIS W/O CONTRAST FINDINGS: No pleural effusion is seen bilaterally. There is no evidence of parenchymal disease or pulmonary nodule of the visualized lower lungs. Degenerative changes of the thoracolumbar spine are present. The heart is not enlarged. There is levoscoliosis. There is 1.8 cm left renal cyst. Liver measures 11.3 cm. Gallbladder is distended. Postop changes are seen of the lower lumbar spine. The liver, spleen, adrenal glands and pancreas are unremarkable. There is no evidence of hydronephrosis bilaterally. 2 mm left renal pelvic stone is seen. Fecal material is seen in the colon. There are normal size retroperitoneal and mesenteric lymph nodes. No ascites is seen. Atherosclerotic changes are present. Pelvic sidewalls are symmetric bilaterally. Bladder is markedly distended. There is mild diverticulosis. IMPRESSION: No hydronephrosis. 2 mm left renal pelvic stone. Diverticulosis. Markedly distended bladder. Scoliosis. HOSPITAL COURSE: THIS IS A 73 YR OLD WOMAN WITH THE ABOVE PMH WHO PRESENTED WITH AN UTI WITH URINARY RETENTION ASSOCIATED WITH CONSTIPATION. SHE NECESSITATED A HARDWICK AND WAS TREATED WITH IV ROCEPHIN. SHE WAS GIVEN LACTULOSE FOR HER CONSTIPATION AND THE FOLLOWING DAY HER HARDWICK WAS DISCONTINUED. SHE WAS ABLE TO VOID ON HER OWN AND WAS DISCHARGED IN STABLE CONDITION. DIET: HEART HEALTHY DIET ACTIVITY: AMBULATION WITH WALKER CONDITION: STABLE EQUIPMENT: NONE FOLLOW UP APPOINTMENT(S): DR OLIVERA IN 3-5 DAYS DISPOSITION: HOME CODE STATUS: FULL MEDICATION RECONCILIATION : RESUME PREVIOUS MEDS ADD LACTULOSE 30 CC PO Q 6 HRS PRN CONSTIPATION CEPHALEXIN 500 MGF PO TID X 1 WEEK TAMSULOSIN 0.4 MG PO QHS X 1-2 WEEKS ^ Home Meds Active Scripts Tamsulosin HCl (Flomax) 0.4 Mg Cap.er.24h, 1 CAP PO HS for 30 Days, #30 CAP 0 Refills Prov:TREVA OLIVERA MD 02/28/24 Lactulose (Lactulose) 10 Gram/15 Ml Solution, 30 ML PO TID for constipation, #500 ML 0 Refills Prov:TREVA OLIVERA MD 02/28/24 Cephalexin (Cephalexin) 500 Mg Capsule, 1 CAP PO TID for 5 Days, #30 CAP 0 Re fills Prov:TREVA OLIVERA MD 02/28/24 Fluticasone/Salmeterol (ADVAIR 250-50 DISKUS) 14 Inh/Disk Inh, 1 PUFF IH BID for 30 Days, #1 EACH 0 Refills Prov:TREVA OLIVERA MD 02/28/24 Memantine HCl (Memantine HCl) 5 Mg Tablet, 1 TAB PO BID for 30 Days, #60 TAB 0 Refills Prov:TREVA OLIVERA MD 02/28/24 Losartan Potassium (Losartan Potassium) 25 Mg Tablet, 0.5 TAB PO BID for 30 Days, #30 TAB 0 Refills Prov:TREVA OLIVERA MD 02/28/24 Gabapentin (Neurontin) 300 Mg Capsule, 1 CAP PO TID for 30 Days, #90 CAP 0 Refills Prov:TREVA OLIVERA MD 02/28/24 Escitalopram Oxalate (Escitalopram Oxalate) 5 Mg Tablet, 1 TAB PO DAILY for 30 Days, #30 TAB 0 Refills Prov:TREVA OLIVERA MD 02/28/24 Albuterol Sulfate (Albuterol Sulfate) 0.63 Mg/3 Ml Vial.neb, 0.63 MG IH QID PRN for SHORTNESS OF BREATH, #30 INH 1 Refill Prov:TREVA OLIVERA MD 02/28/24 Reported Medications Pyridoxine HCl (Vitamin B-6) 100 Mg Tablet, 100 MG PO NOON, TAB 11/21/19 [tylenol w/codeine #3] No Conflict Check, 1 TAB PO BID PRN for PAIN LEVEL 4 TO 6 11/21/19 Discontinued Reported Medications [iron] No Conflict Check, 1 TAB PO NOON 11/21/19 [magnesium] No Conflict Check, 1 TAB PO NOON 11/21/19 [vitamin d] No Conflict Check, 125 MCG PO NOON 11/21/19 [tumeric] No Conflict Check, 500 MG PO NOON 11/21/19 Fenofibrate (Fenofibrate) 54 Mg Tablet, 54 MG PO HS, TAB 11/21/19 Amoxicillin (Amoxicillin) 500 Mg Capsule, 500 MG PO DAILY, CAP 11/21/19 Losartan Potassium (Losartan Potassium) 25 Mg Tablet, 25 MG PO HS, TAB 11/21/19 Gabapentin (Gabapentin) 100 Mg Capsule, 300 MG PO TID, CAP 11/21/19 Sertraline HCl (Zoloft) 100 Mg Tablet, 200 MG PO DAILY, TAB 11/21/19 Diclofenac Sodium (Diclofenac Sodium) 50 Mg Tablet.dr, 50 MG PO BID, TAB 11/21/19 Discontinued Scripts Docusate Sodium (Colace) 100 Mg Capsule, 100 MG PO TID for constipation for 10 Days, #30 CAP 0 Refills Prov:LEI WAYNE 09/25/23 TREVA OLIVERA MD Feb 28, 2024 20:56
[2024-02-28] MEDS ORDERED: LoSARTan 25 MG TABLET PO SCH (21:00)
[2024-02-28] MEDS ORDERED: tamSULOsin HCL 0.4 MG CAP.ER.24H PO SCH (21:00)
[2024-02-28] MEDS ORDERED: MEMANtine HCL 5 MG TABLET PO SCH (21:00)
[2024-02-29] MEDS ORDERED: cefTRIAXone 1G VIAL IVPB SCH (00:30)
[2024-02-29] MEDS ORDERED: citaLOPram 20 MG TABLET PO SCH (09:00)
== END 2024-02-28 18:15 | disposition home or self-care (01) ==
LOC: EDH 23:29 → OBSVTOIN 02-28 03:14 → EDHIP 02-28 03:14 → INTOOBSV 02-28 03:14 → 3CH 02-28 04:00 → EDH 02-28 04:06
PROVIDERS: ADMIT Internal Medicine; ATTEND Internal Medicine
DX: N39.0 Urinary tract infection, site not specified (principal); N20.0 Calculus of kidney; E87.1 Hypo-osmolality and hyponatremia; D64.9 Anemia, unspecified; I10 Essential (primary) hypertension; K59.00 Constipation, unspecified; M48.061 Spinal stenosis, lumbar region without neurogenic claudication; M79.7 Fibromyalgia; M41.9 Scoliosis, unspecified; J44.89 Other specified chronic obstructive pulmonary disease; M19.90 Unspecified osteoarthritis, unspecified site; F32.1 Major depressive disorder, single episode, moderate; K57.30 Diverticulosis of large intestine without perforation or abscess without bleeding; G47.33 Obstructive sleep apnea (adult) (pediatric); E78.00 Pure hypercholesterolemia, unspecified; Z79.899 Other long term (current) drug therapy; Z79.51 Long term (current) use of inhaled steroids
CPT/HCPCS: 81001; 96361; 99285; 80048; 85025; 82948; 36415; 74176; 96365; 96375; G0378 ×15; J2270; J0696; J1885

== ENCOUNTER 2025-01-17 19:13 | Emergency (ER) | payer OTHER ==
[~2025-01-17] VITALS: Ht 165.1 cm; Wt 79.8 kg
[~2025-01-17 19:13] MED LIST changes: +ADV250 IH; +ALBU0.63 IH; -AMOX500C2 PO; +CEPH500C2 PO; -DICL50TA9 PO; -DOCU-116 PO; +ESCI5TAB16 PO; -FENO54TA6 PO; -GABA-529 PO; +GABA300C PO; +LACT-441 PO; +MEMA5TAB16 PO; -PYRI100T10 PO; -SERT100T PO; +TAMS-55 PO; +[UNRECOGNIZED DRUG - CODE] PO; -iron PO; -magnesium PO; -tumeric PO; -vitamin d PO
--- NOTE | 2025-01-17 19:29 | ERN ---
ED Note History of Present Illness Stated Complaint: C/O PAIN W/BURNING & LOWER BACK PAIN Chief Complaint: Painful Urination Time Seen by MD: 19:21 Dictation: PATIENT IS A 74-YEAR-OLD FEMALE COMING IN TODAY WITH COMPLAINTS OF LOW BACK PAIN WITH BURNING URINATION SHE HAS HAD FOR SEVERAL DAYS. SHE STATES SHE HAS NO FEVER NO CHILLS NO NAUSEA VOMITING. SHE STATES SHE DOES HAVE A URINARY TRACT INFECTION SHE THINKS . SHE HAS NOT TAKEN ANYTHING PRIOR TO ARRIVAL FOR PAIN HAS NOT BEEN TO SEE YOUR PRIMARY CARE DOCTOR. FEVER NO CHILLS Allergies: Coded Allergies: ciprofloxacin (Unverified Allergy, Mild, rash between legs, 11/21/19) Home Meds Active Scripts Tamsulosin HCl (Flomax) 0.4 Mg Cap.er.24h, 1 CAP PO HS for 30 Days, #30 CAP 0 Refills Prov:KALIN FRAUSTO MD 02/28/24 Lactulose (Lactulose) 10 Gram/15 Ml Solution, 30 ML PO TID for constipation, #500 ML 0 Refills Prov:KALIN FRAUSTO MD 02/28/24 Cephalexin (Cephalexin) 500 Mg Capsule, 1 CAP PO TID for 5 Days, #30 CAP 0 Refills Prov:KALIN FRAUSTO MD 02/28/24 Fluticasone/Salmeterol (ADVAIR 250-50 DISKUS) 14 Inh/Disk Inh, 1 PUFF IH BID for 30 Days, #1 EACH 0 Refills Prov:KALIN FRAUSTO MD 02/28/24 Memantine HCl (Memantine HCl) 5 Mg Tablet, 1 TAB PO BID for 30 Days, #60 TAB 0 Refills Prov:KALIN FRAUSTO MD 02/28/24 Losartan Potassium (Losartan Potassium) 25 Mg Tablet, 0.5 TAB PO BID for 30 Days, #30 TAB 0 Refills Prov:KALIN FRAUSTO MD 02/28/24 Gabapentin (Neurontin) 300 Mg Capsule, 1 CAP PO TID for 30 Days, #90 CAP 0 Re fills Prov:KALIN FRAUSTO MD 02/28/24 Escitalopram Oxalate (Escitalopram Oxalate) 5 Mg Tablet, 1 TAB PO DAILY for 30 Days, #30 TAB 0 Refills Prov:KALIN FRAUSTO MD 02/28/24 Albuterol Sulfate (Albuterol Sulfate) 0.63 Mg/3 Ml Vial.neb, 0.63 MG IH QID PRN for SHORTNESS OF BREATH, #30 INH 1 Refill Prov:KALIN FRAUSTO MD 02/28/24 Reported Medications Pyridoxine HCl (Vitamin B-6) 100 Mg Tablet, 100 MG PO NOON, TAB 11/21/19 [tylenol w/codeine #3] No Conflict Check, 1 TAB PO BID PRN for PAIN LEVEL 4 TO 6 11/21/19 Past Medical History Past Medical History: Arthritis, Hypertension Surgical History: Other Surgical History Other: BACK SURGERY History: Not Applicable RN Note Reviewed/Agreed w/PFSH: Yes Review of System Dictation CONSTITUTIONAL: NEGATIVE EXCEPT FOR HPI HEAD/FACE: NEGATIVE EXCEPT FOR HPI EENT: NEGATIVE EXCEPT FOR HPI RESPIRATORY: NEGATIVE EXCEPT FOR HPI GASTROINTESTINAL/ABDOMINAL: NEGATIVE EXCEPT FOR HPI GENITOURINARY: NEGATIVE EXCEPT FOR HPI DYSURIA WITH RIGHT FLANK PAIN MUSCULOSKELETAL: NEGATIVE EXCEPT FOR HPI INTEGUMENTARY: NEGATIVE EXCEPT FOR HPI NEUROLOGICAL/PSYCH: NEGATIVE EXCEPT FOR HPI HEMATOLOGIC/LYMPHATIC: NEGATIVE EXCEPT FOR HPI ALL SYSTEMS NEGATIVE, EXCEPT NOTED ABOVE. 13 POINT REVIEW OF SYSTEMS ASSESSED AND ALL NEGATIVE EXCEPT FOR ABOVE. Initial Vital Sign VS Vital Signs Date Time Temp Pulse Resp B/P (MAP) Pulse Ox O2 Delivery O2 Flow Rate FiO2 01/17/25 19:14 98.1 91 20 119/80 97 Room Air 01/17/25 19:51 0 21 Physical Exam Dictation VITAL SIGNS REVIEWED GENERAL APPEARANCE: ALERT, ORIENTED X 3, MODERATE ACUTE DISTRESS, WELL DEVELOPED, NOURISHED. HEAD AND FACE: NON-TRAUMATIC. EYES: PERRL, PINK CONJUNCTIVAS, EYELID NO TRAUMA, ANTERIOR CHAMBER WITH ARCUS SENILIS. EARS: PINNAS INTACT AND NO SIGNS OF TRAUMA OR ERYTHEMA EAR CANALS CLEAR AND NO DISCHARGE TM NO ERYTHEMA NOSE: NO DISCHARGE, NO BLEEDING. OROPHARYNX: MOUTH NORMAL, TONGUE PINK, PHARYNX CLEAR,NO ERYTHEMA, TONSILS NO EXUDATES, NO ABSCESSES NOTED, MUCOUS MEMBRANE MOIST NECK: SUPPLE, NON-TENDER, NO THYROMEGALY, NO MASSES, NO JVD, NO BRUITS BREAST:DEFERRED CHEST:NO TENDERNESS, NO CREPITUS, NO PARADOXICAL MOVEMENT, NO RETRACTIONS LUNGS:CLEAR, WELL-VENTILATED, SYMMETRIC, NO RALES, NO WHEEZING, NO RHONCHI, NO STRIDOR, GOOD BREATH SOUNDS BILATERALLY HEART: REGULAR RATE, REGULAR RHYTHM, NO MURMUR, NO GALLOPS VASCULAR: NO PERIPHERAL EDEMA, ABDOMEN: SOFT, POSITIVE BOWEL SOUNDS, NONDISTENDED, NO GUARDING, NONTENDER, NO REBOUND, NO MASSES NO HEPATOMEGALY, NO SPLENOMEGALY, NO BURNETT'S SIGN, NO HERNIAS. NEGATIVE CVAT RECTAL: DEFERRED GENITAL: DEFERRED NEUROLOGICAL: NORMAL SPEECH, MOTOR FUNCTION INTACT, SENSORY FUNCTION INTACT MUSCULOSKELETAL: NECK NONTENDER, FULL RANGE OF MOTION, MODERATE DIFFUSE RIGHT LUMBOSACRAL TENDERNESS. FULL RANGE OF MOTION, EXTREMITIES: NONTENDER, FULL RANGE OF MOTION SKIN: COLOR PINK, DRY, NO TURGOR, NO RASH, NO LACERATIONS, NO ABRASIONS, NO CONTUSIONS. LYMPHATIC: DEFERRED Results (Laboratory/Radiology) Laboratory/Radiology Laboratory Tests Test 01/17/25 19:24 01/17/25 20:00 Urine Color COLORLESS (YELLOW) Urine Appearance CLOUDY (CLEAR) H Urine pH 6.5 (5.0-8.0) Urine Specific [place] 1.003 (1.001-1.031) Urine Protein 20 mg/dL (NEGATIVE) H Urine Glucose (UA) NEGATIVE mg/dL (NEGATIVE) Urine Ketones NEGATIVE mg/dL (NEGATIVE) Urine Occult Blood MODERATE (NEGATIVE) H Urine Nitrate 1+ (NEGATIVE) H Urine Bilirubin NEGATIVE mg/dL (NEGATIVE) Urine Urobilinogen 0.2 mg/dL (0.2-1.0) Urine Leukocyte Esterase 500 Micah/uL (NEGATIVE) H Urine RBC 6-10 /HPF (0-1) H Urine WBC TNTC /HPF (0-1) H Urine WBC Clumps (Auto) MANY /HPF (0-1) Urine Squamous Epithelial Cells RARE /HPF (0-2) Urine Bacteria RARE /HPF (None Seen) White Blood Count 13.5 K/uL (4.8-10.8) H Red Blood Count 3.56 MIL/uL (4.00-5.50) L Hemoglobin 11.0 g/dL (12.0-16.0) L Hematocrit 32.4 % (36-48) L Mean Corpuscular Volume 91.0 fL (79-99) Mean Corpuscular Hemoglobin 30.9 pg (27.0-33.0) Mean Corpuscular Hemoglobin Concent 34.0 g/dL (32.0-36.0) Red Cell Distribution Width 12.5 % (11.0-15.5) Platelet Count 278 K/uL (130-400) Mean Platelet Volume 8.0 fL (7.5-10.5) Immature Granulocyte % (Auto) 0.4 % (0-1) Neutrophils (%) (Auto) 77.8 % (40.0-77.0) H Lymphocytes (%) (Auto) 14.0 % (21.0-51.0) L Monocytes (%) (Auto) 7.0 % (3.0-13.0) Eosinophils (%) (Auto) 0.6 % (0.0-8.0) Basophils (%) (Auto) 0.2 % (0.0-5.0) Neutrophils # (Auto) 10.5 K/uL (1.8-7.7) H Lymphocytes # (Auto) 1.9 K/uL (1.0-4.8) Monocytes # (Auto) 0.9 K/uL (0.1-1.0) Eosinophils # (Auto) 0.08 K/uL (0.00-0.70) Basophils # (Auto) 0.03 K/uL (0.00-0.20) Absolute Immature Granulocyte (auto 0.06 K/uL (0-1) Nucleated Red Blood Cells 0.0 % (0.0-0.19) Sodium Level 128 mmol/L (136-145) L Potassium Level 3.7 mmol/L (3.5-5.1) Chloride Level 93 mmol/L (101-111) L Carbon Dioxide Level 26 mmol/L (21-32) Blood Urea Nitrogen 11 mg/dL (7-18) Creatinine 0.5 mg/dL (0.5-1.0) Glomerular Filtration Rate Calc 99 mL/min (>90) Random Glucose 101 mg/dL (70-105) Total Calcium 8.6 mg/dL (8.5-10.1) Labs Reviewed?: Yes ED Course ED Course Orders Procedure Category Date Status Time Cbc With Differential LAB 01/17/25 Complete 19:27 Urinalysis Profile LAB 01/17/25 Complete 19:27 Basic Metabolic Panel LAB 01/17/25 Complete 19:27 Ketorolac PHA 01/17/25 Complete Tromethamine 15mg/Ml 20:00 Culture Urine RIKKI 01/17/25 In Process 19:38 Ceftriaxone 2gm Vial PHA 01/17/25 Complete (Rocephin 2gm Inj) 20:30 Phenazopyridine Hcl PHA 01/17/25 Complete 200 Mg Tab (Pyridium 20:30 Current Medications Medications (Trade) Dose Ordered Sig/Shanell Route PRN Reason Start Time Stop Time Status Last Admin Dose Admin Ceftriaxone Sodium (Rocephin 2gm Inj) 2 gm ONCE ONCE IVPB 01/17/25 20:30 01/17/25 20:31 DC 01/17/25 20:35 Ketorolac Tromethamine (toRADol) 15 mg ONCE ONCE IV 01/17/25 20:00 01/17/25 20:01 DC 01/17/25 19:44 Phenazopyridine HCl (PYRIdium HCL 200 MG TAB) 200 mg ONCE ONCE PO 01/17/25 20:30 01/17/25 20:31 DC 01/17/25 20:35 Vital Signs Date Time Temp Pulse Resp B/P (MAP) Pulse Ox O2 Delivery O2 Flow Rate FiO2 01/17/25 19:51 98.8 88 18 142/65 98 Room Air* 0 21 01/17/25 19:14 98.1 91 20 119/80 97 Room Air 2030/SPOKE WITH PATIENT AT LENGTH REGARDING THE FINDINGS ON HER LABS. SHE IS AWARE THAT SHE HAS A LARGE CYSTITIS WITH HEMATURIA. IN ADDITION, [place] [address]238 WHITE COUNT. SHE REFUSED AT THIS TIME TO BE ADMITTED TO THE HOSPITALIST STATES I WANT TO GO HOME I HAVE A AND TAKE CARE OF AND I WE WILL SEE MY DOCTOR TOMORROW. I TOLD HER THAT I WOULD GIVE HER ROCEPHIN2 G NOW AND WE WILL DISCHARGE HER HOME WITH [id number] B.I.D. FOR SEVEN DAYS. SHE AGREED TO COME BACK IF SHE HAD FEVER CHILLS FEVER MORE THAN 101 OR CAN NOT KEEP FOOD OR FLUIDS DOWN. Medical Decision Making MDM MDM: DIFFERENTIAL DIAGNOSIS: PRURITUS/UTI/ELECTROLYTE IMBALANCE/DEHYDRATION/HEMATURIA/MUSCLE PAIN. RATIONALE: TESTS CONSIDERED AND ORDERED SECONDARY TO SHARED DECISION MAKING INCLUDE: LABS PREVIOUS OUTSIDE RECORDS REVIEWED: OLD ER VISITS. RISK OF COMPLICATION AND/OR MORBIDITY OR MORTALITY OF PATIENT MANAGEMENT: NONE MEDICATIONS-PER MEDICATION RECONCILIATION NEED FOR HOSPITALIZATION: PATIENT DOES NOT MEET CRITERIA FOR HOSPITALIZATION. PATIENT REFUSES IT THIS MISSION AT THIS TIME. STATES SHE HAS TO GO HOME TO HER . NEED FOR EMERGENCY MAJOR/MINOR SURGERY: NO THERE ARE NO SOCIAL CONCERNS WITH THIS PATIENT. PRESCRIPTION DRUG MANAGEMENT AUGMENTIN/PYRIDIUM PRESCRIPTIONS WILL INCLUDE SYMPTOMATIC CARE PATIENT'S PRIOR EXTERNAL MEDICAL RECORDS FROM OTHER ER VISITS WERE REVIEWED BY ME INDICATED. PRIOR TESTING AND RESULTS FROM PREVIOUS VISITS WERE REVIEWED. PRIOR TESTS WERE TAKEN INTO ACCOUNT WITH MEDICAL DECISION MAKING AND RESOURCE UTILIZATION, INDEPENDENT HISTORIAN/HISTORIANS WERE USED TO OBTAIN COMPLETE MEDICAL HISTORY. I INDEPENDENTLY INTERPRETED THE TEST THAT WERE PERFORMED, RESULTS WERE REVIEWED BY ME AND CONSIDERED FINDINGS ON RADIOLOGY IF ORDERED. MEDICAL MANAGEMENT AND EXAMINATION INTERPRETATION DISCUSSIONS WERE HAD BY ME WITH OTHER QUALIFIED HEALTHCARE PROFESSIONALS INDICATED FOR THE PATIENT'S CARE. DX & DISP Disposition: Discharge Departure Impression: Primary Impression: Acute cystitis with hematuria Condition: Stable Scripts Phenazopyridine HCl (Pyridium) 200 Mg Tablet 200 MG PO TID for painful urination for 3 Days, #9 TAB 0 Refills Prov: BRENT CHILDSP 01/17/25 Amoxicillin/Potassium Clav (Amox Tr-K Clv 875-125 mg Tab) 875 Mg-125 Mg Tablet 1 EACH PO BID for 7 Days, #14 TAB 0 Refills Prov: BRENT CHILDS 01/17/25 Additional Instructions: FOLLOW-UP WITH PRIMARY CARE PROVIDER IN 1 TO 2 DAYS. TAKE MEDICATIONS DIRECTED HERE IN THE EMERGENCY ROOM. OKAY TO CONTINUE HOME MEDICATIONS UNLESS OTHERWISE DISCUSSED DURING YOUR VISIT IN THE EMERGENCY ROOM TODAY. RETURN TO YOUR NEAREST EMERGENCY ROOM IF SYMPTOMS WORSEN OR IF THERE IS NO IMPROVEMENT. CALL 911 IF YOU NEED IMMEDIATE ASSISTANCE. TAKE TYLENOL OR MOTRIN [id number] NEEDED AND IF NO CONTRAINDICATIONS ARE PRESENT. INCREASE ORAL HYDRATION. A WOUND CULTURE OR URINE CULTURE WAS ORDERED HERE IN THE EMERGENCY ROOM DEPARTMENT PLEASE FOLLOW-UP WITH PRIMARY CARE PROVIDER AND ADVISE THEM TO GET REPEAT PORTS FROM OUR FACILITY. IF YOU HAD ANY CHAI WRAP/SPLINTS THAT WERE APPLIED HERE, PLEASE DO NOT REMOVE THEM UNTIL YOU SEE YOUR PRIMARY CARE OR SPECIALTY. TAKE ANTIBIOTIC DIRECTED UNTIL GONE. TAKE PYRIDIUM DIRECTED FOR THE NEXT THREE DAYS. REMEMBER THE PYRIDIUM WILL TURN YOUR URINE ORANGE RED. INCREASE YOUR WATER INTAKE. SEE YOUR PRIMARY CARE DOCTOR FOR FOLLOW UP IN 1-2 DAYS RETURN TO THE EMERGENCY ROOM IF FEVER MORE THAN 101, YOU CAN NOT KEEP FOOD OR FLUIDS DOWN OR MORE SEVERE PAIN Referrals: KALIN FRAUSTO MD (PCP) Time of Disposition: 21:14 I have reviewed the case, and I agree with, Diagnosis and Plan BRENT CHILDS [facility] Jan 17, 2025 19:29
[2025-01-17 19:33] LABS: APPEARANCE,URINE CLOUDY (CLEAR); GLUCOSE, URINE (UA) NEGATIVE (NEGATIVE); LEUKOCYTE ESTERASE ,URINE 500 Leu/uL (NEGATIVE); NITRATE,URINE 1+ (NEGATIVE); OCCULT BLOOD,URINE MODERATE (NEGATIVE)
[2025-01-17 19:38] LABS: ADD UA MICROSCOPIC YES
[2025-01-17 19:40] LABS: SQUAMOUS EPITHELIAL CELL,UR RARE /HPF (0-2); WBC CLUMP MANY /HPF (0-1)
[2025-01-17 20:23] LABS: IMMATURE GRANULOCYTE ABSOLUTE 0.06 K/uL (0-1); NUCLEATED RED BLOOD CELLS 0.0 % (0.0-0.19); PLATELET COUNT (AUTO) 278 K/uL (130-400); RED BLOOD CELL COUNT(AUTO) 3.56 MIL/uL (4.00-5.50); RED CELL DISTRIBUTION WIDTH 12.5 % (11.0-15.5); WHITE BLOOD COUNT (AUTO) 13.5 K/uL (4.8-10.8)
[2025-01-17 20:29] LABS: CREATININE 0.5 mg/dL (0.5-1.0); GLOMERULAR FILTR. RATE CALC 99.0 mL/min (>90); GLUCOSE,RANDOM 101.0 mg/dL (70-105); SODIUM SERUM 128.0 mmol/L (136-145); UREA NITROGEN, BLOOD 11.0 mg/dL (7-18)
[2025-01-17] MEDS: PHENAZOpyridine HCL 200 MG TAB 200 MG TABLET PO ONE (20:35)
[2025-01-17] MEDS ORDERED: AMOX1TAB16 PO (21:15)
[2025-01-17] MEDS ORDERED: PHEN-776 PO (21:15)
[2025-01-17 21:33] VITALS: BP 140/60; PULSE 85; RESP 18; TEMP 98.8; O2SAT 97
== END 2025-01-17 21:38 | disposition home or self-care (01) ==
LOC: EDH 19:13
DX: N30.01 Acute cystitis with hematuria (principal); I10 Essential (primary) hypertension; M19.90 Unspecified osteoarthritis, unspecified site; Z79.51 Long term (current) use of inhaled steroids; Z79.899 Other long term (current) drug therapy; Z88.1 Allergy status to other antibiotic agents
CPT/HCPCS: 99284; 96374; 96375; 80048; 85025; 87086 ×2; 87186; 81001; 36415; J1885; J0696

== ENCOUNTER 2025-03-04 14:22 | Emergency (ER) | payer OTHER ==
[~2025-03-04] VITALS: Ht 162.6 cm; Wt 92.5 kg
[~2025-03-04 14:22] MED LIST changes: +AMOX1TAB16 PO; +PHEN-776 PO
--- NOTE | 2025-03-04 14:31 | ERN ---
ED Note History of Present Illness Stated Complaint: PAINFUL URINATION Chief Complaint: Painful Urination Time Seen by MD: 14:24 Dictation: PATIENT IS A 74-YEAR-OLD FEMALE COMING IN TODAY WITH COMPLAINTS OF DYSURIA AND PAINFUL URINATION ONSET THIS MORNING. SHE DENIES FLANK PAIN NO SOB NO NAUSEA VOMITING NO FEVER. STATES SHE HAS A HISTORY OF FREQUENT UTIS. Allergies: Coded Allergies: ciprofloxacin (Unverified Allergy, Mild, rash between legs, 11/21/19) Home Meds Active Scripts Phenazopyridine HCl (Pyridium) 200 Mg Tablet, 200 MG PO TID for painful urination for 3 Days, #9 TAB 0 Refills Prov:BRENT CHILDS MEDICAL SURGICAL TECH 01/17/25 Amoxicillin/Potassium Clav (Amox Tr-K Clv 875-125 mg Tab) 875 Mg-125 Mg Tablet, 1 EACH PO BID for 7 Days, #14 TAB 0 Refills Prov:BRENT CHILDS MEDICAL SURGICAL TECH 01/17/25 Tamsulosin HCl (Flomax) 0.4 Mg Cap.er.24h, 1 CAP PO HS for 30 Days, #30 CAP 0 Refills Prov:KALIN FRAUSTO MD 02/28/24 Lactulose (Lactulose) 10 Gram/15 Ml Solution, 30 ML PO TID for constipation, #500 ML 0 Refills Prov:KALIN FRAUSTO MD 02/28/24 Cephalexin (Cephalexin) 500 Mg Capsule, 1 CAP PO TID for 5 Days, #30 CAP 0 Refills Prov:KALIN FRAUSTO MD 02/28/24 Fluticasone/Salmeterol (ADVAIR 250-50 DISKUS) 14 Inh/Disk Inh, 1 PUFF IH BID for 30 Days, #1 EACH 0 Refills Prov:KALIN FRAUSTO MD 02/28/24 Memantine HCl (Memantine HCl) 5 Mg Tablet, 1 TAB PO BID for 30 Days, #60 TAB 0 Refills Prov:KALIN FRAUSTO MD 02/28/24 Losartan Potassium (Losartan Potassium) 25 Mg Tablet, 0.5 TAB PO BID for 30 Days, #30 TAB 0 Refills Prov:KALIN FRAUSTO MD 02/28/24 Gabapentin (Neurontin) 300 Mg Capsule, 1 CAP PO TID for 30 Days, #90 CAP 0 Refills Prov:KALIN FRAUSTO MD 02/28/24 Escitalopram Oxalate (Escitalopram Oxalate) 5 Mg Tablet, 1 TAB PO DAILY for 30 Days, #30 TAB 0 Refills Prov:KALIN FRAUSTO MD 02/28/24 Albuterol Sulfate (Albuterol Sulfate) 0.63 Mg/3 Ml Vial.neb, 0.63 MG IH QID PRN for SHORTNESS OF BREATH, #30 INH 1 Refill Prov:KALIN FRAUSTO MD 02/28/24 Reported Medications Pyridoxine HCl (Vitamin B-6) 100 Mg Tablet, 100 MG PO NOON, TAB 11/21/19 [tylenol w/codeine #3] No Conflict Check, 1 TAB PO BID PRN for PAIN LEVEL 4 TO 6 11/21/19 Past Medical History Past Medical History: Hypertension Surgical History: Other Surgical History Other: BACK SX History: Not Applicable RN Note Reviewed/Agreed w/PFSH: Yes Review of System Dictation CONSTITUTIONAL: NEGATIVE EXCEPT FOR HPI HEAD/FACE: NEGATIVE EXCEPT FOR HPI EENT: NEGATIVE EXCEPT FOR HPI RESPIRATORY: NEGATIVE EXCEPT FOR HPI GASTROINTESTINAL/ABDOMINAL: NEGATIVE EXCEPT FOR HPI GENITOURINARY: NEGATIVE EXCEPT FOR HPI DYSURIA MUSCULOSKELETAL: NEGATIVE EXCEPT FOR HPI INTEGUMENTARY: NEGATIVE EXCEPT FOR HPI NEUROLOGICAL/PSYCH: NEGATIVE EXCEPT FOR HPI HEMATOLOGIC/LYMPHATIC: NEGATIVE EXCEPT FOR HPI ALL SYSTEMS NEGATIVE, EXCEPT NOTED ABOVE. 13 POINT REVIEW OF SYSTEMS ASSESSED AND ALL NEGATIVE EXCEPT FOR ABOVE. Initial Vital Sign VS Vital Signs Date Time Temp Pulse Resp B/P (MAP) Pulse Ox O2 Delivery O2 Flow Rate FiO2 03/04/25 14:23 99.0 95 18 120/83 98 Room Air 0 03/04/25 15:17 21 Physical Exam Dictation VITAL SIGNS REVIEWED GENERAL APPEARANCE: ALERT, ORIENTED X 3, MILD ACUTE DISTRESS, WELL DEVELOPED, NOURISHED. HEAD AND FACE: NON-TRAUMATIC. EYES: PERRL, PINK CONJUNCTIVAS, EYELID NO TRAUMA, ANTERIOR CHAMBER WITH ARCUS SENILIS. EARS: PINNAS INTACT AND NO SIGNS OF TRAUMA OR ERYTHEMA EAR CANALS CLEAR AND NO DISCHARGE TM NO ERYTHEMA NOSE: NO DISCHARGE, NO BLEEDING. OROPHARYNX: MOUTH NORMAL, TONGUE PINK, PHARYNX CLEAR,NO ERYTHEMA, TONSILS NO EXUDATES, NO ABSCESSES NOTED, MUCOUS MEMBRANE MOIST NECK: SUPPLE, NON-TENDER, NO THYROMEGALY, NO MASSES, NO JVD, NO BRUITS BREAST:DEFERRED CHEST:NO TENDERNESS, NO CREPITUS, NO PARADOXICAL MOVEMENT, NO RETRACTIONS LUNGS:CLEAR, WELL-VENTILATED, SYMMETRIC, NO RALES, NO WHEEZING, NO RHONCHI, NO STRIDOR, GOOD BREATH SOUNDS BILATERALLY HEART: REGULAR RATE, REGULAR RHYTHM, NO MURMUR, NO GALLOPS VASCULAR: NO PERIPHERAL EDEMA, ABDOMEN: SOFT, POSITIVE BOWEL SOUNDS, NONDISTENDED, NO GUARDING, NONTENDER, NO REBOUND, NO MASSES NO HEPATOMEGALY, NO SPLENOMEGALY, NO BURNETT'S SIGN, NO HERNIAS. RECTAL: DEFERRED GENITAL: MILD SUPRAPUBIC TENDERNESS NEUROLOGICAL: NORMAL SPEECH, MOTOR FUNCTION INTACT, SENSORY FUNCTION INTACT MUSCULOSKELETAL: NECK NONTENDER, FULL RANGE OF MOTION, BACK NONTENDER, FULL RANGE OF MOTION, EXTREMITIES: NONTENDER, FULL RANGE OF MOTION SKIN: COLOR PINK, DRY, NO TURGOR, NO RASH, NO LACERATIONS, NO ABRASIONS, NO CONTUSIONS. LYMPHATIC: DEFERRED Results (Laboratory/Radiology) Laboratory/Radiology Laboratory Tests Test 03/04/25 14:41 Urine Color LIGHT-YELLOW (YELLOW) Urine Appearance HAZY (CLEAR) Urine pH 6.5 (5.0-8.0) Urine Specific [place] 1.004 (1.001-1.031) Urine Protein 30 mg/dL (NEGATIVE) H Urine Glucose (UA) NEGATIVE mg/dL (NEGATIVE) Urine Ketones NEGATIVE mg/dL (NEGATIVE) Urine Occult Blood LARGE (NEGATIVE) H Urine Nitrate 2+ (NEGATIVE) H Urine Bilirubin NEGATIVE mg/dL (NEGATIVE) Urine Urobilinogen 0.2 mg/dL (0.2-1.0) Urine Leukocyte Esterase 500 Micah/uL (NEGATIVE) H Urine RBC 2-5 /HPF (0-1) H Urine WBC TNTC /HPF (0-1) H Urine Squamous Epithelial Cells RARE /HPF (0-2) Urine Bacteria MOD /HPF (None Seen) Labs Reviewed?: Yes ED Course ED Course Orders Procedure Category Date Status Time Urinalysis Profile LAB 03/04/25 Complete 14:29 Acetaminophen 500mg PHA 03/04/25 Complete Tab (Tylenol 500mg T 14:30 Phenazopyridine Hcl PHA 03/04/25 Complete 200 Mg Tab (Pyridium 14:30 Culture Urine [id number] 03/04/25 In Process 15:17 Amox/Clav 875/125mg PHA 03/04/25 Complete Tab (Augmentin 875-1 15:30 Current Medications Medications (Trade) Dose Ordered Sig/Shanell Route PRN Reason Start Time Stop Time Status Last Admin Dose Admin Acetaminophen (TYLenol 500MG TAB) 1,000 mg ONCE ONCE PO 03/04/25 14:30 03/04/25 14:36 DC Amoxicillin/ Clavulanate Potassium (Augmentin 875-125 Tablet) 1 each ONCE ONCE PO 03/04/25 15:30 03/04/25 15:31 DC Phenazopyridine HCl (PYRIdium HCL 200 MG TAB) 200 mg ONCE ONCE PO 03/04/25 14:30 03/04/25 14:36 DC 03/04/25 15:15 Vital Signs Date Time Temp Pulse Resp B/P (MAP) Pulse Ox O2 Delivery O2 Flow Rate FiO2 03/04/25 15:17 83 21 141/85 95 Room Air* 0 21 03/04/25 14:23 99.0 95 18 120/83 98 Room Air 0 1538/patient has a large UTI we will be given Augmentin 8 Discharged home with the same and told to see your doctor move 7 Medical Decision Making MDM Medical decision-making based on empiric treatment for dysuria and collection of urinalysis Urinalysis demonstrates a acute cystitis with hematuria Patient discharged home with Pyridium and Augmentin Told to see her doctor Thursday DX & DISP Disposition: Discharge Departure Impression: Primary Impression: Acute cystitis with hematuria Condition: Stable Scripts Ibuprofen (Ibuprofen 800 mg Tab) 800 Mg Tab 800 MG PO Q8H PRN for fever or pain, #30 TAB 0 Refills Prov: BRENT CHILDS 03/04/25 Phenazopyridine HCl (Pyridium) 200 Mg Tab 200 MG PO TIDPC for 3 Days, #9 TAB TAKE WITH FOOD TO PREVENT STOMACH UPSET. Prov: BRENT CHILDSP 03/04/25 Amoxicillin/Potassium Clav (Amox Tr-K Clv 875-125 mg Tab) 875 Mg-125 Mg Tablet 1 EACH PO BID for 5 Days, #10 TAB 0 Refills Prov: BRENT CHILDSP 03/04/25 Additional Instructions: Follow-up with primary care provider in 1 to 2 days. Take medications as directed here in the emergency room. Okay to continue home medications unless otherwise discussed during your visit in the emergency room today. Return to your nearest emergency room if symptoms worsen or if there is no improvement. Call 911 if you need immediate assistance. Take Tylenol or Motrin [id number] as needed and if no contraindications are present. Increase oral hydration. A wound culture or urine culture was ordered here in the emergency room department please follow-up with primary care provider and advise them to get repeat ports from our facility. If you had any Yariel wrap/splints that were applied here, please do not remove them until you see your primary care or specialty. Take antibiotics as directed until gone. Take Pyridium3 times a day for the next three days. Remember Pyridium will turn your urine orange red. Increase your water intake. See your primary care doctor on Thursday or Thursday for follow up and management Referrals: KALIN FRAUSTO MD (PCP) Time of Disposition: 15:39 I have reviewed the case, and I agree with, Diagnosis and Plan BRENT CHILDSP Mar 04, 2025 14:31
[2025-03-04 15:14] LABS: GLUCOSE, URINE (UA) NEGATIVE (NEGATIVE); LEUKOCYTE ESTERASE ,URINE 500 Leu/uL (NEGATIVE); NITRATE,URINE 2+ (NEGATIVE); OCCULT BLOOD,URINE LARGE (NEGATIVE)
[2025-03-04] MEDS: PHENAZOpyridine HCL 200 MG TAB 200 MG TABLET PO ONE (15:15)
[2025-03-04 15:17] LABS: ADD UA MICROSCOPIC YES; APPEARANCE,URINE HAZY (CLEAR)
[2025-03-04 15:24] LABS: SQUAMOUS EPITHELIAL CELL,UR RARE /HPF (0-2)
[2025-03-04] MEDS ORDERED: PHEN-847 PO (15:40)
[2025-03-04] MEDS ORDERED: IBUP-2077 PO (15:40)
[2025-03-04] MEDS: AMOX/CLAV 875/125MG TAB PO ONE (16:44)
[2025-03-04 16:45] VITALS: BP 159/69; PULSE 79; RESP 19; TEMP 98.6; TEMP 99; O2SAT 95
== END 2025-03-04 16:54 | disposition home or self-care (01) ==
LOC: EDH 14:22
DX: N30.01 Acute cystitis with hematuria (principal); I10 Essential (primary) hypertension; Z88.1 Allergy status to other antibiotic agents; Z79.899 Other long term (current) drug therapy; Z79.51 Long term (current) use of inhaled steroids
CPT/HCPCS: 81001; 87086; 87186; 99284